=== PATIENT | female | born 1985 ===

== ENCOUNTER 2018-02-23 16:21 | Emergency (ER) | payer BC ==
[2018-02-23 16:27] VITALS: PULSE 77; RESP 20; TEMP 97.7; O2SAT 99
[2018-02-23] MEDS ORDERED: Tdap Vaccine 0.5 ml Vial (10-64 yrs) IM ONE ×2 (16:54→17:14)
--- NOTE | 2018-02-23 17:10 | C.PDOC ---
History Of Present Illness 32 year old female presents to the ED for evaluation of head and back injuries sustained yesterday when a bed rail fell and struck her in the head and back left shoulder. No LOC. Patient is now complaining of headache and pain to the injured area. Advised by coworkers to come in for further evaluation Time Seen by Provider: 02/23/18 16:41 Chief Complaint (Nursing): Headache History Per: Patient History/Exam Limitations: no limitations Onset/Duration Of Symptoms: Days (x2) Current Symptoms Are (Timing): Still Present Past Medical History Reviewed: Historical Data, Nursing Documentation, Vital Signs Vital Signs: Last Vital Signs Temp 97.7 F 02/23/18 16:27 Pulse 77 02/23/18 16:27 Resp 20 02/23/18 16:27 BP Pulse Ox 99 02/23/18 18:22 Family History: States: No Known Family Hx Review Of Systems Except As Marked, All Systems Reviewed And Found Negative. Musculoskeletal: Positive for: Back Pain Neurological: Positive for: Headache Physical Exam - Physical Exam Appears: Non-toxic, No Acute Distress Skin: Normal Color, Warm, Dry Head: Normacephalic, Tenderness (and area of hematoma to left parietal area) Eye(s): bilateral: Normal Inspection, PERRL, EOMI Oral Mucosa: Moist Neck: Normal ROM, Supple Chest: Symmetrical Cardiovascular: Rhythm Regular, No Murmur Respiratory: Normal Breath Sounds, No Accessory Muscle Use Back: No Vertebral Tenderness, Other (Linear abrasion to left parathoracic, no step off or deformity, no cellulitic component) Extremity: Bilateral: Atraumatic, Normal Color And Temperature, Normal ROM Neurological/Psych: Oriented x3, Normal Speech ED Course And Treatment O2 Sat by Pulse Oximetry: 99 (RA) Pulse Ox Interpretation: Normal - Radiology CXR: Viewed By Me, Read By Radiologist CXR Interpretation: Yes: No Acute Disease - CT Scan/US CT Head Other Rad Studies (CT/US): Read By Radiologist (at 17:45), Radiology Report Reviewed CT/US Interpretation: FINDINGS: HEMORRHAGE: No intracranial hemorrhage. BRAIN : No mass effect or edema. No atrophy or chronic microvascular ischemic changes. VENTRICLES: Unremarkable. No hydrocephalus. CALVARIUM: Unremarkable. PARANASAL SINUSES: Unremarkable as visualized. No significant inflammatory changes. MASTOID AIR CELLS: Unremarkable as visualized. No inflammatory changes. OTHER FINDINGS: None. IMPRESSION: No acute intracranial abnormalities. No significant findings to account for the clinical presentation. Medical Decision Making Medical Decision Making: Impression: Minor head injury, contusion/abrasion Time: 16:47 Initial Plan: --Urine preg --CT Head --Chest x-ray --Tdap booster given Informed patient of negative imaging Patient has remained AAOx3, with improvement in symptoms over ED stay She is medically stable for d/c home Advised to follow up with PMD in 2 days Disposition Counseled Patient/Family Regarding: Studies Performed, Diagnosis, Need For Followup, Rx Given - Disposition Disposition: HOME/ ROUTINE Disposition Time: 18:19 Condition: STABLE Additional Instructions: follow up with medical clinic in 2 days call to make an appointment take medications as needed for pain return to hospital if symptoms worsens or progress apply bacitracin or neosporin twice daily to injured area Prescriptions: Naproxen [Naprosyn] 500 mg PO BID PRN #16 tab PRN Reason: Pain, Moderate (4-7) traMADol [Ultram] 50 mg PO TID PRN #8 tab PRN Reason: Pain, Moderate (4-7) Instructions: Skin Abrasions, Contusion (DC), Minor Head Injury (DC) Forms: General Discharge Instructions, [facility] (Kyrgyz), Work Excuse - Clinical Impression Clinical Impression: Head injury, Abrasion, Contusion - Scribe Statement The provider has reviewed the documentation as recorded by the Scribe (Landy Ballesteros) Provider Attestation: All medical record entries made by the Scribe were at my direction and personally dictated by me. I have reviewed the chart and agree that the record accurately reflects my personal performance of the history, physical exam, medical decision making, and the department course for this patient. I have also personally directed, reviewed, and agree with the discharge instructions and disposition.
--- NOTE | 2018-02-23 17:50 | CT ---
PROCEDURE: CT HEAD WITHOUT CONTRAST. HISTORY: Headache, dizziness and shoulder pain COMPARISON: None available. TECHNIQUE: Axial computed tomography images were obtained through the head/brain without intravenous contrast. Coronal and sagittal reconstructed images. Radiation dose: Total exam DLP = 755.55 mGy-cm. This CT exam was performed using one or more of the following dose reduction techniques: Automated exposure control, adjustment of the mA and/or kV according to patient size, and/or use of iterative reconstruction technique. FINDINGS: HEMORRHAGE: No intracranial hemorrhage. BRAIN: No mass effect or edema. No atrophy or chronic microvascular ischemic changes. VENTRICLES: Unremarkable. No hydrocephalus. CALVARIUM: Unremarkable. PARANASAL SINUSES: Unremarkable as visualized. No significant inflammatory changes. MASTOID AIR CELLS: Unremarkable as visualized. No inflammatory changes. OTHER FINDINGS: None. IMPRESSION: No acute intracranial abnormalities. No significant findings to account for the clinical presentation.
--- NOTE | 2018-02-23 18:15 | RAD ---
HISTORY: cough COMPARISON: No prior. TECHNIQUE: Chest PA and lateral FINDINGS: LUNGS: No active pulmonary disease. PLEURA: No significant pleural effusion identified. No pneumothorax apparent. CARDIOVASCULAR: Normal. OSSEOUS STRUCTURES: No significant abnormalities. VISUALIZED UPPER ABDOMEN: Normal. OTHER FINDINGS: None. IMPRESSION: No active disease.
[2018-02-23] MEDS ORDERED: Bacitracin 500 Units/gm Oint Foilpak UD TOP ONE (18:18)
[2018-02-23] MEDS ORDERED: Bacitracin 500 Units/gm Oint Foilpak UD ONE (18:36)
== END 2018-02-23 18:46 | disposition home or self-care (01) ==
LOC: C.ER 16:21
DX: S00.03XA Contusion of scalp, initial encounter (principal); S20.412A Abrasion of left back wall of thorax, initial encounter; W22.8XXA Striking against or struck by other objects, initial encounter